=== PATIENT | female | born 2005 | race Caucasian/White ===

== ENCOUNTER 2025-02-18 22:46 | Emergency (ER) | payer BC, SELFPAY ==
[2025-02-18] VITALS (13 sets, daily range): BP systolic 133–146; BP diastolic 78–95; PULSE 79–102; RESP 16–21; TEMP 36.6; O2SAT 96–100
--- NOTE | 2025-02-18 22:45 | RT.EKG_ITS ---
APPROVED REPORT Exam: Resting ECG Reason for Exam: chest pain Patient Location: E HR:73 bpm ECG Measurements Heart Rate 73 AXIS [place] 153 P 24 QRSd 81 QRS 32 QT 392 T 19 QTc 432 Conclusion Sinus rhythm...normal P axis, V-rate 60- [address] segment or T wave abnormalities to suggest occlusive OR
--- NOTE | 2025-02-18 23:15 | DI.RAD_ITS ---
Exam(s) XR CHEST 2V PA LATERAL EXAM: XR CHEST 2V PA LATERAL CLINICAL HISTORY: chest pain TECHNIQUE: 2D digital imaging was performed. Two views. COMPARISON: No exams were available for comparison FINDINGS: HEART: Normal size. Aorta: Not dilated. PULMONARY VASCULATURE: Normal. MEDIASTINUM: Unremarkable. LUNGS: Clear. PLEURAL SPACE: No pleural effusion or pneumothorax. BONE:Unremarkable for age. SOFT TISSUES: Unremarkable. IMPRESSION: No acute abnormality. DATA REPOSITORY: RADIATION DOSE DELIVERED:
[2025-02-18 23:47] LABS: Abs Immature Grans 0.03 10^3/uL (0.0-0.06); Absolute Basophil Count 0.05 10^3/uL (0.0-0.2); Absolute Eosinophil Count 0.15 10^3/uL (0.0-0.7); Absolute Lymphocyte Count 1.91 10^3/uL (1.2-3.4); Absolute Monocyte Count 0.61 10^3/uL (0.1-0.8); Basophils % 0.4 %; Eosinophils % 1.3 %; HCT 39.8 % (36.0-46.0); Immature Grans % 0.3 %; Lymphocytes % 16.8 %; MCH 24.7 pg (27.0-33.0); MCHC 32.7 % (32.0-36.0); MCV 76 fL (80-95); MPV 9.5 fL (8.0-11.0); Monocytes % 5.4 %; Neutrophils % 75.8 %; Platelet Count 216 10^3/uL (130-400); RBC 5.27 10^6/uL (3.93-5.22); RDW 13.9 % (11.7-14.6); RDW-SD 37.1 fL; WBC 11.34 10^3/uL (4.4-10.8)
[2025-02-19] VITALS (17 sets, daily range): BP systolic 117–142; BP diastolic 67–83; PULSE 68–90; RESP 15–24; O2SAT 98–100
--- NOTE | 2025-02-19 00:01 | ED.GENADUL_ITS ---
Discharge Plan Disposition Patient Disposition: Home Condition: Good Discharge Details Clinical Impression: Chest pain Primary Care Provider: Unknown,Unknown ED Provider: Nasrin De Leon Home Meds and New Rx's Prescriptions: No Action control pill Patient Comments: unsure of brand Discharge Instructions Instructions: Chest Pain, Adult ED Additional Instructions: Call your primary care doctor in the morning to schedule an appointment to followup on your visit today. Return to the emergency department for new or worsening symptoms including if your chest pain returns, you have difficulty breathing, feel like you are going to pass out, or if you have any other concerns. HPI General Mode of arrival: ambulatory . Date/Time Provider Initiated Documentation: 02/18/25 23:01 . Limitations to Documentation: no limitations . Information obtained by: patient . HPI Narrative: 19yo previously healthy female presenting with chest pain. About 30 minutes ago started having sharp substernal chest pain radiating to between her shoulder blades that lasted about 20 minutes. Has since resolved. No shortness of breath, LE edema, pleurtic pain, cough, recent injury, or other concerns. Related Data Home Medications ?Medication ?Instructions ?Recorded ?Confirmed control pill 02/18/25 Allergies Allergy/AdvReac Type Severity Reaction Status Date / Time No Known Allergies Allergy Unverified 02/18/25 22:57 General Stated Complaint: Chest Pain JOAN: 3 Review of Systems Narrative: see HPI Exam Narrative Exam Narrative: General: Alert, well appearing, well nourished, in no acute distress. Head: Normocephalic, atraumatic Neck: Trachea midline, ?Neck supple. ENT: ?MMM.? No oropharygeal lesions or exudate. Cardiac: ?RRR, no murmurs appreciated Resp: No respiratory distress. CTAB. Abd: ?Soft, non-distended, nontender : ?No suprapubic tenderness. No CVA tenderness. Back: No tenderness. Extremities: ?No deformities.? No peripheral edema. Neurologic: GCS 15. ? Moves all extremities freely against gravity Course Vital Signs Vital signs: Vital Signs Temperature 36.6 C 02/18/25 22:54 Pulse 96 H 02/18/25 22:54 Respiratory Rate 18 02/18/25 22:54 Blood Pressure 133/81 02/18/25 22:54 Pulse Oximetry 99 02/18/25 22:54 Temperature 36.6 C 02/18/25 22:54 Temperature Source Temporal Artery Scan 02/18/25 22:54 Pulse 80 02/18/25 23:01 Pulse 80 02/18/25 23:01 Respiratory Rate 16 02/18/25 23:01 Respiratory Effort Normal, Non-Labored 02/18/25 22:58 Respiratory Depth Normal 02/18/25 22:58 Respiratory Pattern Normal 02/18/25 22:58 Blood Pressure 144/78 H 02/18/25 23:01 Blood Pressure Mean 97 02/18/25 23:01 Blood Pressure Position Supine 02/18/25 22:54 Pulse Oximetry 100 02/18/25 23:01 Oxygen Delivery Method Room Air 02/18/25 22:54 Oxygen Flow Rate 0 02/18/25 22:54 Pain Level 0 02/18/25 22:58 Lab/Test Results Lab/Test Results: Laboratory Tests Range/Units 02/18/25 23:42 WBC (4.4-10.8) 10^3/uL 11.34 H RBC (3.93-5.22) 10^6/uL 5.27 H Hgb (11.2-15.7) g/dL 13.0 Hct (36.0-46.0) % 39.8 MCV (80-95) fL 76 L MCH (27.0-33.0) pg 24.7 L MCHC (32.0-36.0) % 32.7 RDW (11.7-14.6) % 13.9 Plt Count (130-400) 10^3/uL 216 MPV (8.0-11.0) fL 9.5 Immature Gran % % 0.3 Neutrophils % % 75.8 Lymphocytes % % 16.8 Monocytes % % 5.4 Eosinophils % % 1.3 Basophils % % 0.4 Nucleated RBC % (0.0-0.3) % 0.0 Absolute Neutrophils (1.2-6.7) 10^3/uL 8.60 H Absolute Lymphocytes (1.2-3.4) 10^3/uL 1.91 Absolute Monocytes (0.1-0.8) 10^3/uL 0.61 Absolute Eosinophils (0.0-0.7) 10^3/uL 0.15 Absolute Basophils (0.0-0.2) 10^3/uL 0.05 Medical Decision Making 19yo previously healthy female presenting with 20 minutes of sharp substernal chest pain radiating to her shoulder blades, since resolved. Occurred while standing up from couch. Vital signs reassuring on arrival. Well appearing on exam. No reproducible tenderness. EKG on arrival SR, appropriate intervals, no ST segment or T wave abnormalities to suggest occlusive IA. No family history of early cardiac disease or sudden unexpected . Patient is on OCPs. Suspect MSK etiology most likely; must also consider cardiac/pulmonary pathology including pulmonary embolism though less likely. Discussed with patient and father at bedside; after shared decision making they would feel more comfortably with laboratory evaluation including dimer screening which is not unreasonable. CXR independently reviewed; no focal pneumonia or pneumothorax on my view. Labs reviewed as below, CBC reassuring with no leukoctysois or anemia, CMP with no actionable abnormalities, troponin negative (HEART score 0, would not further pursue ACS). Dimer +. CTA ordered and independently reviewed; no large saddle embolus on my view, radiology read with no acute findings. On reassessment she remains well appearing with reassuring vital signs. Appropriate for outpatient followup with PCP. Discharged home; discharge instructions and return precautions were reviewed with patient who verbalized understanding. All questions were answered and she is in full agreement with the plan. Imaging Data Radiologic Study: Imaging: X-Ray and CT Scan Radiologist's impression: CXR: IMPRESSION: No acute cardiopulmonary pathology CT: Quality:SDOH Health Related Social Needs: No Data to Display PFSH All Active Problems (Updated 02/19/25 @ 00:24 by Nasrin De Leon MD) Chest pain (Acute) Social History Smoking/Tobacco Use Status: Never Smoking risk assessment performed?: Yes Alcohol Intake: current Alcohol Intake frequency: holidays/special occasions only Drug use: Never Substance use type: does not use Housing: house Do you feel safe at home: Yes Do you feel safe in your relationship?: Yes
[2025-02-19 00:11] LABS: HCG Qual (Serum) Negative
[2025-02-19 00:13] LABS: D-Dimer 922 ng/mlFEU (<500)
[2025-02-19 00:17] LABS: ALT 19 U/L (14-59); AST 14 U/L (15-37); Albumin 3.7 g/dL (3.4-5.0); Alkaline Phosphatase 102 U/L (46-116); Anion Gap 11.3 mmol/L (3-11); BUN 9 mg/dL (7-18); Bilirubin, Total 0.3 mg/dL (0.2-1.0); CO2 26.7 mmol/L (21.0-32.0); CREATININE 0.8 mg/dL (0.55-1.02); Calcium 9.3 mg/dL (8.5-10.1); Chloride 105 mmol/L (98-107); Estimated GFR 107.44 (mL/min/1.73m2); Glucose 133 mg/dL (74-106); Sodium 143 mmol/L (136-145); Total Protein 7.9 g/dL (6.4-8.2)
[2025-02-19 00:29] LABS: Troponin I < 4 ng/L (<or=51)
--- NOTE | 2025-02-19 00:48 | DI.VRAD_ITS ---
PROCEDURE INFORMATION: Exam: XR Chest Exam date and time: 02/18/2025 23:52 Age: 19 years old Clinical indication: Chest pressure; Chest pain TECHNIQUE: Imaging protocol: Radiologic exam of the chest. Views: 2 views. COMPARISON: No relevant prior studies available. FINDINGS: Lungs: No consolidation. Pleural spaces: No pleural effusion. No pneumothorax. Heart/Mediastinum: No cardiomegaly. Bones/joints: No acute fracture. IMPRESSION: No acute cardiopulmonary pathology. Dictated and Authenticated by: Gogo Smalls MD. Orderin Haley Alexandra MD
--- NOTE | 2025-02-19 01:03 | DI.CT_ITS ---
Exam(s) CT CHEST PE CTA EXAM: CT CHEST PE CTA CLINICAL HISTORY: chest pain + dimer. TECHNIQUE: Imaging Protocol: Axial CT angiography was performed with multi-slice acquisition and mu lti-planar reconstructions as well as axial, coronal and sagittal MIP reconstructions. Computer aided detection (CAD) was utilized. CONTRAST MATERIAL: Intravenous: Omnipaque 350 Contrast volume:80 mL COMPARISON: CR,XR XR CHEST 2V PA LATERAL from 02/18/2025 FINDINGS: Pulmonary Arteries: No evidence of filling defect to suggest pulmonary emboli. Mediastinum and Audrey: No dominant adenopathy or fluid collection. Pulmonary parenchyma: Expiratory changes. No consolidation or dominant measurable mass. Pleura: No effusion or pneumothorax. Heart: The heart is not dilated. No coronary artery calcifications are seen. Aorta: Thoracic aorta non-dilated. No dissection. Upper abdomen: No acute findings. Bones: Unremarkable for age. Tubes, Catheters, and Lines: None Soft tissues: Unremarkable. IMPRESSION: No evidence of pulmonary embolism or other acute abnormality. RADIATION DOSE DELIVERED: Total DLP DATA REPOSITORY: All CT scans at this facility are submitted to the National Radiology Data Registry (NRDR) Dose Index Registry (DIR) with the [employer] ([employer]). RADIATION OPTIMIZATION: All CT scans at this facility use at least one of these dose optimization te chniques: automated exposure control; mA and/or kV adjustment per patient size (includes targeted exa ms where dose is matched to clinical indication); or iterative reconstruction.
[2025-02-19] MEDS: Omnipaque 350 MG/ML 100 ML BTL 80 ML IJ (01:04)
[2025-02-19] MEDS: Normal Saline - Diluent 50 ML VIAL IJ (01:05)
--- NOTE | 2025-02-19 01:34 | DI.VRAD_ITS ---
PROCEDURE INFORMATION: Exam: CTA Chest With Contrast Exam date and time: 02/19/2025 12:48 AM Age: 19 years old Clinical indication: Other: + dimer; Chest pressure; Chest pain, +dimer TECHNIQUE: Imaging protocol: Computed tomographic angiography of the chest with contrast. Exam focused on the arteries. 3D rendering (Not supervised by radiologist): MIP and/or 3D reconstructed images were created by the technologist. Radiation optimization: All CT scans at this facility use at least one of these dose optimization techniques: automated exposure control; mA and/or kV adjustment per patient size (includes targeted exams where dose is matched to clinical indication); or iterative reconstruction. Contrast material: [id number]; Contrast volume: 80 ml; Contrast route: INTRAVENOUS (IV); COMPARISON: CR XR CHEST 2V PA LATERAL 02/18/2025 11:52 PM FINDINGS: Pulmonary arteries: Normal. No pulmonary emboli. Aorta: Unremarkable. No aortic aneurysm. No aortic dissection. Lungs: Unremarkable. No consolidation. No masses. Pleural spaces: Unremarkable. No pneumothorax. No pleural effusion. Heart: Unremarkable. No cardiomegaly. No pericardial effusion. Lymph nodes: Unremarkable. No enlarged lymph nodes. Bones/joints: Unremarkable. No acute fracture. Soft tissues: Unremarkable. IMPRESSION: No acute findings. Dictated and Authenticated by: Juan Carlos Hill MD. Orderin Haley Alexandra MD
== END 2025-02-19 01:41 | disposition home or self-care (01) ==
PROVIDERS: Emergency Provider Student in an Organized Health Care Education/Training Program
DX: R07.9 Chest pain, unspecified (principal)
CPT/HCPCS: 71275; 80053; 93005; 99285; 71046; 84484; 84703; 85025; 85379; 93010; 99283; J3490